=== PATIENT | male | born 1945 | race American Indian/Alaskan Native ===

== ENCOUNTER 2018-06-13 15:46 | Emergency (ER) | payer MEDICARE ==
[2018-06-13 16:17] VITALS: BP 139/68
--- NOTE | 2018-06-13 16:27 | Emergency Department Report ---
Blank Doc - Documentation Documentation: 5 days of left flank pain and polyruia and dysuria. worried he has an infection. POC Glucose 87
[2018-06-13 17:07] LABS: Bilirubin,Urine NEG (Negative); Blood,Urine SM (Negative); Color,Urine Yellow (Yellow); Mucus,Urine FEW /HPF; Urobilinogen,Urine < 2.0 mg/dL (<2.0); WBC,Urine < 1.0 /HPF (0.0-6.0)
--- NOTE | 2018-06-13 18:48 | Emergency Department Report ---
ED Male HPI - General Chief complaint: Urogenital-Male Stated complaint: KIDNEY PAIN Time Seen by Provider: 06/13/18 16:24 Source: patient Mode of arrival: Ambulatory Limitations: No Limitations - History of Present Illness Initial comments: This is a 72-year-old healthy looking male with no prior medical history who presents to ED complaining of mild dysuria and no flank pain. Deficiency symptoms are resolved now states that he's been drinking cranberry juice. He states that dysuria only happened 2 days ago no other. Patient denies any injuries or trauma or blood in the urine. He denies abdominal pain, fever, nausea vomiting. - Related Data Home Medications Medication Instructions Recorded Confirmed Last Taken Eye Drops For Glaucoma 12/22/12 12/22/12 12/21/12 Latanoprost [Xalatan 0.005% eye 1 drop OU QPM 12/22/12 02/28/16 12/21/12 drops] Lisinopril [Zestril TAB] 5 mg PO DAILY 02/28/16 02/28/16 Unknown Simvastatin [Zocor TAB] 10 mg PO QHS 02/28/16 02/28/16 Unknown Previous Rx's Medication Instructions Recorded Last Taken Type Tamsulosin [Flomax] 0.4 mg PO QDAY #30 cap 02/28/16 Unknown Rx Phenazopyridine [Pyridium] 200 mg PO BID #10 tab 06/13/18 Unknown Rx Allergies Allergy/AdvReac Type Severity Reaction Status Date / Time No Known Allergies Allergy Verified 06/13/18 15:53 ED Review of Systems ROS: Stated complaint: KIDNEY PAIN Other details as noted in HPI Comment: All other systems reviewed and negative ED Past Medical Hx - Past Medical History Hx Diabetes: Yes Additional medical history: enlarged prostate - Surgical History Additional Surgical History: HAD PROSTATE BX IN MAY OF THIS YEAR. NEG FOR CANCER. PUT ON ANTIBIOTICS AND PSA DECREASED - Social History Smoking Status: Never Smoker Substance Use Type: None - Medications Home Medications: Home Medications Medication Instructions Recorded Confirmed Last Taken Type Eye Drops For Glaucoma 12/22/12 12/22/12 12/21/12 History Latanoprost [Xalatan 0.005% eye 1 drop OU QPM 12/22/12 02/28/16 12/21/12 History drops] Lisinopril [Zestril TAB] 5 mg PO DAILY 02/28/16 02/28/16 Unknown History Simvastatin [Zocor TAB] 10 mg PO QHS 02/28/16 02/28/16 Unknown History Tamsulosin [Flomax] 0.4 mg PO QDAY #30 cap 02/28/16 Unknown Rx Phenazopyridine [Pyridium] 200 mg PO BID #10 tab 06/13/18 Unknown Rx ED Physical Exam - General Limitations: No Limitations General appearance: alert, in no apparent distress - Head Head exam: Present: atraumatic, normocephalic - Eye Eye exam: Present: normal appearance - ENT ENT exam: Present: mucous membranes moist - Neck Neck exam: Present: normal inspection - Respiratory Respiratory exam: Present: normal lung sounds bilaterally. Absent: respiratory distress - Cardiovascular Cardiovascular Exam: Present: regular rate, normal rhythm. Absent: systolic murmur, diastolic murmur, rubs, gallop - GI/Abdominal GI/Abdominal exam: Present: soft, normal bowel sounds. Absent: distended, tenderness, guarding, mass - Rectal Rectal exam: Present: deferred - Extremities Exam Extremities exam: Present: normal inspection - Back Exam Back exam: Present: normal inspection. Absent: full ROM, tenderness, CVA tenderness (R), CVA tenderness (L) - Neurological Exam Neurological exam: Present: alert, oriented X3 - Psychiatric Psychiatric exam: Present: normal affect, normal mood - Skin Skin exam: Present: warm, dry, intact, normal color. Absent: rash ED Course Vital Signs 06/13/18 16:16 Temperature 97.7 F Pulse Rate 66 Respiratory 14 Rate Blood Pressure 139/68 [Right] O2 Sat by Pulse 99 Oximetry ED Medical Decision Making - Medical Decision Making This 72-year-old male presents with dysuria Symptoms resolved now patient states. Urinalysis shows no signs of acute kidney injury or a UTI. Discussed this findings with the patient. Discussed the patient to follow up with his primary care physician. Patient states he hasn't appointment on July 03. Bowel sounds are normal patient is in no acute distress. Patient understands instructions given. Critical care attestation.: If time is entered above; I have spent that time in minutes in the direct care of this critically ill patient, excluding procedure time. ED Disposition Clinical Impression: Dysuria Disposition: DC-01 TO HOME OR SELFCARE Is pt being admited?: No Does the pt Need Aspirin: No Condition: Stable Instructions: Dysuria (ED) Additional Instructions: Make sure to follow up with the primary care physician as discussed. If you have any worsening symptoms or develop new symptoms please return to ED immediately. Prescriptions: Phenazopyridine [Pyridium] 200 mg PO BID #10 tab Referrals: DONTE HERRERA MD [Primary Care Provider] - 3-5 Days Forms: Work/School Release Form(ED) Time of Disposition: 18:52
== END 2018-06-13 19:12 | disposition home or self-care (01) ==
LOC: ED 15:46
DX: R30.0 Dysuria (principal); E11.9 Type 2 diabetes mellitus without complications
CPT/HCPCS: 81001; 82962